=== PATIENT | male | born 1985 | race Caucasian/White ===

== ENCOUNTER 2017-09-08 00:48 | Emergency (ER) | payer OTHER ==
[2017-09-08] MEDS ORDERED: Diphtheria,Pertussis(Acell),Tetanus Vaccine 0.5 ML Syringe ONE (01:06)
[2017-09-08] MEDS ORDERED: Lidocaine 1% with EPINEPHrine 1:100,000 20 ML MDV INJECT ONE (01:06)
[2017-09-08] MEDS ORDERED: Diphtheria,Pertussis(Acell),Tetanus Vaccine 0.5 ML Syringe IM ONE (01:07)
--- NOTE | 2017-09-08 01:07 | EDM.PDOC ---
ED HPI GENERAL MEDICAL PROBLEM - General Chief Complaint: Laceration Stated Complaint: "I think I need stitches" Time Seen by Provider: 09/08/17 01:06 Source of Information: Reports: Patient History Limitations: Reports: No Limitations - History of Present Illness INITIAL COMMENTS - FREE TEXT/NARRATIVE: This patient is a 32 year old male that presents to the ER. Patient reports that he was working at [employer] when he hit his head on metal. Patient reports having a laceration to the right frontal head. Patient reports pain at laceration site, but no global headache. Patient denies n, v, vision changes, loc, neck pain, neck stiffness. Patient is alert and oriented. Denies any other complaints. Onset: Today Onset Date: 09/08/17 Location: Reports: Head Front/Back Body Image: 1 - laceration Severity: Mild Improves with: Reports: None Worsens with: Reports: None Associated Symptoms: Reports: No Other Symptoms, Headaches (mild at laceration site. ). 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 [No Known Home Meds] 09/08/17 [History] ED ROS GENERAL - Review of Systems Review Of Systems: See Below Constitutional: Reports: No Symptoms HEENT: Reports: No Symptoms Respiratory: Reports: No Symptoms Cardiovascular: Reports: No Symptoms Endocrine: Reports: No Symptoms GI/Abdominal: Reports: No Symptoms : Reports: No Symptoms Musculoskeletal: Reports: No Symptoms Skin: Reports: Wound (laceration) Neurological: Reports: No Symptoms Psychiatric: Reports: No Symptoms Hematologic/Lymphatic: Reports: No Symptoms Immunologic: Reports: No Symptoms ED EXAM, SKIN/RASH Exam: See Below Exam Limited By: No Limitations General Appearance: Alert, WD/WN, No Apparent Distress, Anxious Eye Exam: Bilateral Eye: EOMI, Normal Inspection, PERRL Ears: Normal External Exam, Normal Canal, Hearing Grossly Normal, Normal TMs Nose: Normal Inspection, Normal Mucosa, No Blood Throat/Mouth: Normal Inspection, Normal Lips, Normal Teeth, Normal Gums, Normal Oropharynx, Normal Voice, No Airway Compromise Head: Other (laceration right frontal head). No: Facial Swelling, Facial Tenderness, Sinus Tenderness Neck: Normal Inspection, Supple, Non-Tender, Full Range of Motion Respiratory/Chest: No Respiratory Distress, Lungs Clear, Normal Breath Sounds, No Accessory Muscle Use Cardiovascular: Normal Peripheral Pulses, No Edema, No Gallop, No JVD, No Murmur , No Rub, Tachycardia (136 on exam. ) Peripheral Pulses: 2+: Radial (L), Radial (R) (Male) Exam: Deferred Rectal (Males) Exam: Deferred Back Exam: Normal Inspection, Full Range of Motion Extremities: Normal Inspection, Normal Range of Motion Neurological: Alert, Oriented Skin: Warm, Dry, Normal Color, No Rash, Wound/Incision (laceration right frontal head) Location, Skin: Head ED SKIN PROCEDURES - Laceration/Wound Repair Right Anterior Head Lac/Wound length In cm: 3.5 Appearance: Superficial Distal NVT: Neuro & Vascular Intact, No Tendon Injury Anesthetic Type: Local Local Anesthesia - Lidocaine (Xylocaine): 1% with EPI Local Anesthetic Volume: 5cc Skin Prep: Chlorhexidine (Hibiciens) Exploration/Debridement/Repair: Wound Explored, In a Bloodless Field, Explored to Base Closed with: [place] # of Sutures: 4 EKG INTERPRETATION EKG Date: 09/08/17 Time: 01:49 Rhythm: Other (Sinus Tach) Rate (Beats/Min): 118 ST-T: Normal Comparison: NA - No Prior EKG Course - Vital Signs Last Recorded V/S: Last Vital Signs Temp 99.3 F 09/08/17 02:25 Pulse 97 09/08/17 03:05 Resp 16 09/08/17 02:46 BP 161/91 H 09/08/17 03:05 Pulse Ox 98 09/08/17 02:59 - Orders/Labs/Meds Orders: Active Orders 24 hr Category Date Time Status EKG Documentation Completion [RC] STAT Care 09/08/17 01:43 Active Vaccines to be Administered [RC] PER UNIT ROUTINE Care 09/08/17 01:07 Active Chest 2V [CR] Stat Exams 09/08/17 01:59 Taken Head wo Cont [CT] Stat Exams 09/08/17 01:58 Taken Labs: Laboratory Tests 09/08/17 09/08/17 Range/Units 02:05 02:05 WBC 8.5 (5.0-10.0) 10^3/uL RBC 5.05 (4.50-6.00) 10^6/uL Hgb 15.1 (14.0-18.0) g/dL Hct 43.1 (40.0-54.0) % MCV 85.3 (82.0-94.0) fL MCH 29.9 (27.0-32.0) pg MCHC 35.0 (33.0-38.0) g/dL RDW Coeff of Jael 12.4 (11.0-15.0) % Plt Count 308 (150-400) 10^3/uL Neut % (Auto) 75.3 (35-85) % Lymph % (Auto) 16.6 (10-55) % Hodgeman % (Auto) 7.5 (0-16) % Eos % (Auto) 0.2 (0-5) % Baso % (Auto) 0.4 (0-3) % Neut # (Auto) 6.43 (1.80-7.00) 10^3/uL Lymph # (Auto) 1.42 (1.00-4.80) 10^3/uL Hodgeman # (Auto) 0.64 (0.00-0.80) 10^3/uL Eos # (Auto) 0.02 (0.00-0.45) 10^3/uL Baso # (Auto) 0.03 10^3/uL Sodium 140 (136-145) mEq/L Potassium 3.8 (3.5-5.0) mEq/L Chloride 102 (98-106) mEq/L Carbon Dioxide 25 (21-32) mmol/L BUN 18 (7-18) mg/dL Creatinine 1.1 (0.7-1.3) mg/dL Est Cr Clr Drug Dosing 98.62 mL/min Estimated GFR (MDRD) > 60 (>=60) mL/min Glucose 142 H (75-99) mg/dL Calcium 9.1 (8.4-10.1) mg/dL Total Bilirubin 0.3 (0.0-1.0) mg/dL AST 36 (15-37) U/L ALT 81 H (12-78) U/L Alkaline Phosphatase 85 (46-116) U/L Creatine Kinase 74 (35-232) U/L Troponin I < 0.017 (0.00-0.06) ng/mL Total Protein 7.7 (6.4-8.2) g/dL Albumin 4.0 (3.4-5.0) g/dL Meds: Medications Discontinued Medications Generic Name Dose Route Start Last Admin Trade Name Freq PRN Reason Stop Dose Admin Diphtheria/Tetanus/Acell Pertussis 0.5 ml 09/08/17 01:07 09/08/17 01:26 Adacel IM 09/08/17 01:08 0.5 ml .ONCE ONE Administration Diphtheria/Tetanus/Acell Pertussis Confirm 09/08/17 01:06 09/08/17 01:19 Adacel Administered 09/08/17 01:07 Not Given Dose 0.5 ml .ROUTE .STK-MED ONE Sodium Chloride 1,000 mls @ 1,000 mls/hr 09/08/17 01:50 09/08/17 02:05 Normal Saline IV 09/08/17 02:49 1,000 mls/hr .BOLUS ONE Administration Lidocaine/Epinephrine 20 ml 09/08/17 01:06 09/08/17 01:17 Xylocaine 1% With Epinephrine 1:100,000 INJECT 09/08/17 01:07 20 ml ONETIME ONE Administration Metoprolol Tartrate 2.5 mg 09/08/17 02:47 09/08/17 02:52 Lopressor IVPUSH 09/08/17 02:48 2.5 mg ONETIME ONE Administration Metoprolol Tartrate 2.5 mg 09/08/17 03:03 Lopressor IVPUSH 09/08/17 03:04 ONETIME ONE - Radiology Interpretation Free Text/Narrative:: CXR: No cardiomegaly, no nfiltrates, no edema. Head Ct: Soft tissue injury, intracranial normal. No bleed. - Re-Assessments/Exams Free Text/Narrative Re-Assessment/Exam: 09/08/17 01:34 Patient HR prior to procedure was 136. Post procedure is now 120. Having patient relax in ER with light off and laying down to help relax. Possibly tachycardia due to anxiety from injury. 09/08/17 01:51 Patient HR is 120 after laying. Patient reports no symptoms. He denies lawler, dizziness, n, v, d, f, neck pain, neck stiffness, chest pain, shortness of breath, palpitations, lightheaded, edema, abd pain. Patient also HTN 170s/109. I did order an EKG that is sinus tach. Patient is asymptomatic. A this time, will give fluids to see if any change in HR. I will also order labs. Due to patient recent head injury with now HTN, tachycardia, will head ct. Patient denies drinking energy drinks. 09/08/17 02:[address], unremarkable labs other than elevated BS without history. Patient has gotten 750ml NS, HR is now 110, BP is 166/108. I will give the patient Metoprolol IV to reduce BP and HR. Have discussed this with patient and all results in ER. The head injury with laceration repair and head ct are work injury related. Tachycardia and HTN or incidental ER findings. 09/08/17 03:03 Patient HR is now 98, BP 160/91 after Metoprolol. I will discharge the patient. I will also prescribe Metoprolol to patient. I educated him about side effects and risks associated with this medication. He is educated to stop the medication if he has dizziness, passing out, chest pain, shortness of breath, or any other symptoms. Departure - Departure Time of Disposition: 01:39 Disposition: Home, Self-Care 01 Condition: Fair Clinical Impression: Tachycardia with heart rate 121-140 beats per minute, Hyperglycemia, unspecified Laceration of head Qualifiers: Encounter type: initial encounter Location of open wound of head: scalp Foreign body presence: without foreign body Qualified Code(s): S01.01XA - Laceration without foreign body of scalp, initial encounter HTN (hypertension) Qualifiers: Hypertension type: unspecified Qualified Code(s): I10 - Essential (primary) hypertension - Discharge Information Instructions: Hyperglycemia, Sinus Tachycardia, Hypertension, [id number], Laceration Care, Adult, [id number] Referrals: Provider,Unknown [Primary Care Provider] - Forms: ED Department Discharge Additional Instructions: Followup with your primary care provider in about 7 days for staple removal and evaluation Followup with your primary care provider for evaluation of heart rate, blood pressure, and blood sugar Increase fluids Return to the ER for worsening of condition or any emergent concerns Wash the area gently with soap and water twice a day, rinse, pat dry. Metoprolol 50mg 1 pill twice a day #30 no refill - My Orders Last 24 Hours: My Active Orders 09/08/17 01:07 Vaccines to be Administered [RC] PER UNIT ROUTINE 09/08/17 01:43 EKG Documentation Completion [RC] STAT 09/08/17 01:58 Head wo Cont [CT] Stat 09/08/17 01:59 Chest 2V [CR] Stat - Assessment/Plan Last 24 Hours: My Active Orders 09/08/17 01:07 Vaccines to be Administered [RC] PER UNIT ROUTINE 09/08/17 01:43 EKG Documentation Completion [RC] STAT 09/08/17 01:58 Head wo Cont [CT] Stat 09/08/17 01:59 Chest 2V [CR] Stat Plan: PLEASE SEE RN NOTE FOR PFSH.
[2017-09-08] MEDS ORDERED: Sodium Chloride 0.9% 1,000 ML IV ONE (01:50)
[2017-09-08 02:29] LABS: CHLORIDE,CL 102 mEq/L (98-106); SODIUM,NA 140 mEq/L (136-145)
[2017-09-08] MEDS ORDERED: Metoprolol Tartrate 5 MG/5 ML SDV IVPUSH ONE ×2 (02:47→03:03)
== END 2017-09-08 03:15 | disposition home or self-care (01) ==
LOC: CC.ED 00:48
DX: S01.01XA Laceration without foreign body of scalp, initial encounter (principal); I10 Essential (primary) hypertension; R00.0 Tachycardia, unspecified; R73.9 Hyperglycemia, unspecified; W22.8XXA Striking against or struck by other objects, initial encounter; Z23 Encounter for immunization
CPT/HCPCS: 12002; 36415; 70450; 71046; 80053; 82550; 84484; 85025; 90471; 90715; 93005; 96361; 96374; 99284; J7030; 96365; 96375; J3490

== ENCOUNTER 2024-05-16 17:56 | Emergency (ER) | payer BC ==
[2024-05-16] MEDS: Lidocaine 1% 5 ML VIAL INJECT ONE (18:51)
[2024-05-16] MEDS: Bacitracin/Neomycin/Polymyxin B Oint 0.9 GM U/D Packet TOP ONE (18:52)
== END 2024-05-16 18:50 | disposition home or self-care (01) ==
LOC: CC.ED 17:56
DX: S61.211A Laceration without foreign body of left index finger without damage to nail, initial encounter (principal); W26.0XXA Contact with knife, initial encounter
CPT/HCPCS: 12001; 99282; A9270; 99283; J3490